=== PATIENT | male | born 1950 | race Two or more races ===

== ENCOUNTER 2024-09-05 11:22 | Emergency (ER) | payer MEDICARE, SELFPAY ==
[2024-09-05 11:23] VITALS: BMI 22.8
--- NOTE | 2024-09-05 11:31 | EKG_ITS ---
[facility] Test Date: 2024-09-05 Pat Name: JOLENE RODRIGUES Department: Room: - Gender: Male Supervisor [employer] Education: : 1950 Requested By: Jos Pierson Order Number: [id number] Reading MD: Jos Pierson Measurements Intervals [place] Rate: 72 P: 73 [place]: 148 QRS: 64 QRSD: 84 T: 73 QT: 418 QTc: 461 Interpretive Statements SINUS RHYTHM No previous ECG available for comparison /store/S0/[id number].pdf
[2024-09-05 11:58] VITALS: BP 105/60; PULSE 76; RESP 17; TEMP 36.9; O2SAT 97; BMI 22.8
--- NOTE | 2024-09-05 12:15 | XR_ITS ---
Examination: Shoulder,left, 3 views Technique: Shoulder AP internal rotation, AP external rotation, Y view shoulder, 3 views Exam date and time :September 05, 2024 1231 hours INDICATIONS: Left shoulder pain beginning 2 weeks ago. FINDINGS: Moderate narrowing glenohumeral joint No fracture or shoulder dislocation IMPRESSION: Moderate narrowing glenohumeral joint
--- NOTE | 2024-09-05 12:15 | XR_ITS ---
Examination: PA lateral chest 2 views TECHNIQUE: Upright PA lateral chest 2 views Exam date and time: September 05, 2024 1233 hours INDICATIONS: Chest pain beginning 2 weeks ago. FINDINGS: Bibasilar bronchitis versus early bronchopneumonia Normal heart size The osseous structures are intact IMPRESSION: Bibasilar bronchitis versus early bronchopneumonia, clinical correlation advised
[2024-09-05 13:34] LABS: Basophils % (Auto) 0 % (0-2.5); Eosinophils % (Auto) 0 % (0-10); Hematocrit 38.7 % (41.0-53.0); Hemoglobin 12.9 g/dL (13.5-16.0); Immature Granulocytes % (Auto) 0 % (0-0); Immature Granulocytes Auto 0.01 Thou/mm3 (0.00-0.00); Lymphocytes # (Auto) 1.2 Thou/mm3 (1.0-4.8); Lymphocytes % (Auto) 24 % (10-50); Mean Corpuscular HGB Conc 33.3 g/dl (31.0-37.0); Mean Corpuscular Hemoglobin 28.6 pg (25.0-35.0); Mean Corpuscular Volume 86 fL (80-100); Monocytes # (Auto) 0.6 Thou/mm3 (0.0-0.8); Monocytes % (Auto) 13 % (0-12); Neutrophils # (Auto) 3.1 Thou/mm3 (1.8-7.7); Neutrophils % (Auto) 62 % (37-80); Nucleated Red Blood Cell % 0 /100 WBC (0); Platelet Count 142 Thou/mm3 (140-440); Red Blood Count 4.51 Miln/mm3 (4.50-5.90); White Blood Count 4.9 Thou/mm3 (3.8-10.6)
[2024-09-05 14:03] LABS: Alanine Aminotransferase 34 U/L (10-49); Albumin/Globulin Ratio 1.3 (1.2-2.2); Alkaline Phosphatase 94 U/L (46-116); Anion Gap 12 (7-16); Aspartate Amino Transferase 46 U/L (0-34); BUN/Creatinine Ratio 24 Ratio (12-20); Bilirubin,Total 0.4 mg/dL (0.3-1.2); Blood Urea Nitrogen 26 mg/dL (9-23); Calcium 8.6 mg/dL (8.3-10.6); Calcium (Corrected) 8.6 mg/dL (8.5-10.1); Carbon Dioxide 23.5 mMol/L (20.0-31.0); Chloride 99 mMol/L (98-107); Creatinine (Component) 1.1 mg/dL (0.6-1.3); Estimated Creatinine Clearance 59.3 mL/min (>60); Globulin 3.2 gm/dL (2.3-3.5); Osmolality,Calculated 290 (275-295); Potassium 3.9 mMol/L (3.4-5.1); Sodium 134 mMol/L (136-145); Total Protein 7.2 gm/dL (5.7-8.2); Troponin I < 0.002 ng/mL (0.0-0.045); eGFR > 60 See Note
[2024-09-05 14:49] LABS: Glucose 430 mg/dL (74-106)
--- NOTE | 2024-09-05 15:05 | PD.EDUPEX ---
Upper Extremity Injury RME/HPI General Chief Complaint: Extremity Injury, Upper Stated Complaint: LEFT ARM PAIN/SHOULDER PAIN Time Seen by Provider: 09/05/24 12:15 Arrival date/time: 09/05/24 11:22 73-year-old male with history of hypertension, hypercholesterolemia and diabetes presents emergency department today with complaints of left shoulder pain. Patient report symptoms ongoing for the last couple of weeks patient reports pain is worse with movement Limitations: no limitations Related Data Home Medications ?Medication ?Instructions ?Recorded ?Confirmed lisinopril 20 mg tablet 20 mg PO QDAY 09/05/17 09/05/17 pioglitazone 15 mg tablet 15 mg PO DAILY 09/05/17 09/05/17 pravastatin 20 mg tablet 20 mg PO DAILY 09/05/17 09/05/17 Previous Rx's ?Medication ?Instructions ?Recorded cyclobenzaprine 5 mg tablet 5 mg PO TID PRN muscle spasm #30 09/05/24 tabs ibuprofen 600 mg tablet 600 mg PO Q6H #30 tabs 09/05/24 Allergies Allergy/AdvReac Type Severity Reaction Status Date / Time No Known Allergies Allergy Verified 09/05/24 11:25 Review of Systems Review of Systems Systems Reviewed: All systems reviewed, normal except as documented Constitutional Constitutional: Reports system reviewed and no additional complaints, except as documented, Denies fever(s) and Denies headache(s) Eyes Eyes: Reports system reviewed and no additional complaints, except as documented and Denies blurry vision ENT Ears, Nose, Mouth, and Throat: Reports system reviewed and no additional complaints, except as documented, Denies headache(s), Denies nasal congestion and Denies nasal discharge Cardiovascular Cardiovascular: Reports system reviewed and no additional complaints, except as documented, Denies chest pain and Denies dyspnea Respiratory Respiratory: Reports system reviewed and no additional complaints, except as documented, Denies chest congestion, Denies cough and Denies dyspnea Gastrointestinal Gastrointestinal: Reports system reviewed and no additional complaints, except as documented and Denies abdominal pain Musculoskeletal Musculoskeletal: Reports system reviewed and no additional complaints, except as documented, Reports arthralgias, Denies deformity and Denies joint swelling Integumentary/Breasts Skin/Breast: Reports system reviewed and no additional complaints, except as documented and Denies rash Neurologic Neurologic: Reports system reviewed and no additional complaints, except as documented, Reports as per HPI and Denies headache(s) Past Medical History Past Medical History CARDIAC: Positive Hypercholesterolemia and Hypertension ENDOCRINE: Positive Diabetes Mellitus Type 2 Social History SMOKING STATUS: Never smoker ED Exam General Limitations: Present no limitations General appearance: Present alert and in no apparent distress Head Head exam: Present atraumatic, normocephalic and normal inspection Eye Eye exam: Present normal appearance, PERRL and EOMI ENT ENT exam: Present normal exam, normal oropharynx and mucous membranes moist Neck Neck exam: Present normal inspection, full ROM and trachea midline Chest Chest inspection: Present normal inspection and symmetric chest wall rise Respiratory Respiratory exam: Present normal lung sounds bilaterally Cardiovascular Cardiovascular exam: Present regular rate, normal rhythm and normal heart sounds Abdominal Exam Abdominal exam: Present soft and normal bowel sounds Extremities Exam Extremities exam: Present full ROM, tenderness (Left shoulder pain) and normal capillary refill Back Exam Back exam: Present normal inspection and full ROM Neurological Exam Neurological exam: Present alert, oriented X3 and CN II-XII intact Psychiatric Psychiatric exam: Present normal affect and normal mood Skin Skin exam: Present warm, dry, intact and normal color Course Quality Measures none Orders Category Date Time Status EKG (ED ONLY) *Do not use* NOW Care 09/05/24 11:32 Completed EKG (ED Only) Stat Exams 09/05/24 11:31 Ordered EKG (ED Only) Urgent Exams 09/05/24 11:31 Draft XR chest 2V Stat Exams 09/05/24 12:15 Completed XR shoulder LT min 2V Stat Exams 09/05/24 12:15 Completed CBC Stat Lab 09/05/24 13:01 Completed Comprehensive Metabolic Panel Stat Lab 09/05/24 13:01 Completed Troponin I Stat Lab 09/05/24 13:01 Completed Vital Signs Vital signs: Vital Signs Temperature 98.5 F 09/05/24 11:58 Pulse Rate 76 09/05/24 11:58 Respiratory Rate 17 09/05/24 11:58 Blood Pressure 105/60 09/05/24 11:58 Pulse Oximetry (%) 97 09/05/24 11:58 Oxygen Delivery Method Room Air 09/05/24 11:58 O2 saturation 97% room air within normal limits Procedures -ED EKG Interpretation #1: Date of EK09/05/24 Time of EK:56 Rate: 72 Interpretation: Interpreted by me EKG Impression: Normal sinus rhythm, No acute ST-T changes, No ectopy, No ischemic changes, Normal QRS, Normal intervals and Normal axis Extremity Injury MDM Narrative MDM Narrative:: 73-year-old male with history of hypertension, hypercholesterolemia and diabetes presents emergency department today with complaints of left shoulder pain. Patient report symptoms ongoing for the last couple of weeks patient reports pain is worse with movement EKG ordered from triage patient currently reports no chest pain or shortness of breath EKG within normal limits Lab work obtained troponin is normal incidentally patient's blood sugar is elevated At time reevaluation patient's blood sugar has decreased on its own Explained to the patient he needs to have an A1c level and better management of his diabetes with his PCP At time of discharge patient reports no chest pain no shortness of breath Symptoms consistent with muscle pain, arthritis Patient discharged home in no distress to follow-up with primary care doctor in the next 24 to 48 hours and for any worsening symptoms to return to the ER immediately Patient data External records reviewed:: [facility] previous records Clinical information provided by:: patient Social determinants that could affect healthcare access:: none Patient has the following chronic illnesses:: None How is presenting disease/condition affected by chronic disease/condition?: no chronic disease Evaluation data The following diagnostics were reviewed and interpreted by me:: lab results and radiology exam(s) Lab and/or radiology exams considered but not ordered:: Labs and radiology obtained Interpretation Summary: Reviewed by me Medications / Prescriptions Medications or Prescriptions considered but not ordered:: Given Medication administrations:: Given Consultations Consultation(s) initiated? (list below): No Diagnosis Upper Extremity Injury Differential Diagnosis: other (Shoulder sprain, shoulder fracture) Most likely diagnosis given after review of the tests above:: Shoulder pain left Admission Indicated Admission indicated?: not indicated Admission Request Was there a request for admission?: No Disposition Plan Disposition Plan: Discharge Discharge Attestation Discharge Attestation: The patient and all family members were given an opportunity to ask questions and understood the discharge instructions. Discharge instructions specifically effects, indications for sooner follow up or return to the emergency department, and the expected course of current diagnosis. Patient condition: Stable Discharge Plan Plan Patient Disposition: HOME (Self Care) Disposition Comment: Stable Prescriptions/Referrals Prescriptions/Med Rec: New ibuprofen 600 mg tablet 600 mg PO Q6H Qty: 30 0RF cyclobenzaprine 5 mg tablet 5 mg PO TID PRN (Reason: muscle spasm) Qty: 30 0RF No Action lisinopril 20 mg Tablet 20 mg PO QDAY pioglitazone 15 mg tablet 15 mg PO DAILY Patient Comments: TAKE ONE BY MOUTH EVERY DAY FOR DIABETES pravastatin 20 mg tablet 20 mg PO DAILY Patient Comments: TAKE ONE TABLET BY MOUTH EVERY DAY AT BED TIME FOR CHOLESTEROL Referrals: Rik (PCP),MD Vincent [Primary Care Provider] - 09/06/24 Problem List Clinical Impression: Left shoulder pain Patient/Caregiver Discharge Instructions Education Materials: ED Arthralgia Additional Instructions: Please follow up with your primary care doctor in the next 24-48hrs for any worsening symptoms return here immediately Please discuss better management with your PCP for your blood sugar Print Language: Mongolian Stand Alone Forms: [employer]oro Award Info., Patient Portal Info Letter PA/SCREEN OPERATOR Supervising Physician PA/SCREEN OPERATOR Supervising Physician: Dr Pierson
== END 2024-09-05 15:39 | disposition home or self-care (01) ==
PROVIDERS: Nurse Practitioner Primary Care; Emergency Provider Emergency Medicine; PCP Family Medicine
DX: M25.512 Pain in left shoulder (principal); I10 Essential (primary) hypertension; E78.00 Pure hypercholesterolemia, unspecified; E11.9 Type 2 diabetes mellitus without complications
CPT/HCPCS: 36415; 71046; 73030; 80053; 84484; 85025; 93005; 99283